=== PATIENT | male | born 1950 | race Caucasian/White ===

== ENCOUNTER 2017-08-22 11:24 | Outpatient (CLI) | payer MEDICARE, BC ==
--- NOTE | 2017-08-22 13:17 | RAD ---
CHEST TWO VIEWS: HISTORY: Cough. COMPARISON: None. FINDINGS: The exam is limited, as the right costophrenic sulcus is not interrogated on the PA radiograph. The lungs are otherwise clear without pneumothorax or effusion. The cardiac silhouette and mediastinal c ontour are within normal limits. IMPRESSION: Within the limits of this exam, no acute intrathoracic abnormality. POS: [facility]
== END 2017-08-22 11:25 | disposition home or self-care (01) ==
LOC: RAD 11:24
PROVIDERS: ATTEND Family Medicine
DX: R05 Cough (principal); E78.5 Hyperlipidemia, unspecified; E55.9 Vitamin D deficiency, unspecified
CPT/HCPCS: 36415; 71046; 80061; 80076; 82306

== ENCOUNTER 2023-06-04 11:49 | Emergency (ER) | payer MEDICARE, BC ==
[2023-06-04] MEDS ORDERED: Lidocaine 1% (PF) 30 ML VIAL ONE (15:06)
[2023-06-04] MEDS ORDERED: Bacitracin 1 PK ONE (15:52)
== END 2023-06-04 16:37 | disposition home or self-care (01) ==
LOC: ERS 11:49
DX: S02.2XXA Fracture of nasal bones, initial encounter for closed fracture (principal); S01.111A Laceration without foreign body of right eyelid and periocular area, initial encounter; K21.9 Gastro-esophageal reflux disease without esophagitis; I10 Essential (primary) hypertension; Z79.899 Other long term (current) drug therapy; W01.10XA Fall on same level from slipping, tripping and stumbling with subsequent striking against unspecified object, initial encounter
CPT/HCPCS: 12011; 70450; 70486; 72125; J2001

== ENCOUNTER 2023-06-13 07:40 | Emergency (ER) | payer MEDICARE, BC | END 2023-06-13 08:35 | disposition home or self-care (01) | LOC: ERS 07:40 | DX: S01.111D Laceration without foreign body of right eyelid and periocular area, subsequent encounter (principal); W18.30XD Fall on same level, unspecified, subsequent encounter ==

== ENCOUNTER 2023-10-12 14:30 | Outpatient (CLI) | payer MEDICARE, BC | END 2023-10-12 14:31 | disposition home or self-care (01) | LOC: BICMAMMO 14:30 | PROVIDERS: ATTEND Family Medicine | DX: Z13.820 Encounter for screening for osteoporosis (principal); Z91.89 Other specified personal risk factors, not elsewhere classified | CPT/HCPCS: 77080 ==